=== PATIENT | female | born 1960 | race Native Hawaiian/Other Pacific Islander ===

== ENCOUNTER 2022-06-07 16:15 | Emergency (ER) | payer OTHER ==
[~2022-06-07] VITALS: Ht 157.5 cm; Wt 113.4 kg
[2022-06-07 16:45] VITALS: TEMP 97.2
[2022-06-07 21:21] LABS: PLATELET COUNT 464 K/uL (152-353)
[2022-06-07 21:43] LABS: POTASSIUM 3.6 mmol/L (3.6-5.2)
[2022-06-07 21:44] LABS: PARTIAL THROMBOPLASTIN TIME 27.6 SECONDS (24.5-33.6)
[2022-06-07 22:47] VITALS: BP 155/76
[2022-06-07] MEDS ORDERED: LEVOFLOXACIN500 MG PO (22:54)
[2022-06-07] MEDS ORDERED: PRED20TA27 PO (22:54)
== END 2022-06-07 23:20 | disposition home or self-care (01) ==
LOC: ED 16:15
PROVIDERS: Emergency Medicine
DX: J44.1 Chronic obstructive pulmonary disease with (acute) exacerbation (principal)
CPT/HCPCS: 80053; 83880; 84484; 85027; 85379; 85610; 85730; 94664; 99283; J2930

== ENCOUNTER 2022-07-04 13:01 | Emergency (ER) | payer OTHER ==
[~2022-07-04] VITALS: Ht 157.5 cm; Wt 113.4 kg
[2022-07-04 13:01] VITALS: TEMP 97.7
[~2022-07-04 13:01] MED LIST: LEVOFLOXACIN500 MG PO; PRED20TA27 PO
[2022-07-04 13:35] LABS: PLATELET COUNT 489 K/uL (152-353)
[2022-07-04 13:43] LABS: POTASSIUM 3.6 mmol/L (3.6-5.2)
[2022-07-04 13:53] LABS: PARTIAL THROMBOPLASTIN TIME 27.2 SECONDS (24.5-33.6)
[2022-07-04 17:41] VITALS: BP 121/70
== END 2022-07-04 17:54 | disposition home or self-care (01) ==
LOC: ED 13:01
PROVIDERS: Emergency Medicine
DX: R07.89 Other chest pain (principal)
CPT/HCPCS: 80053; 83880; 84484; 85027; 85610; 85730; 96374; 96375; 99284; J2270; J2405

== ENCOUNTER 2022-07-20 16:13 | Emergency (ER) | payer OTHER ==
[~2022-07-20] VITALS: Ht 157.5 cm; Wt 113.4 kg
[2022-07-20 16:48] LABS: PLATELET COUNT 572 K/uL (152-353)
[2022-07-20 16:56] LABS: POTASSIUM 4.1 mmol/L (3.6-5.2)
[2022-07-21 01:05] VITALS: BP 120/70; TEMP 98.6
== END 2022-07-21 01:05 | disposition other institution (70) ==
LOC: ED 16:20
PROVIDERS: Family Medicine
DX: R45.851 Suicidal ideations (principal); F32.89 Other specified depressive episodes; Z11.52 Encounter for screening for COVID-19
CPT/HCPCS: 36415; 80053; 80307; 80320; 81002; 85027; 87635; 93005; 99285; U0003

== ENCOUNTER 2022-08-23 18:04 | Emergency (ER) | payer OTHER ==
[~2022-08-23] VITALS: Ht 157.5 cm; Wt 121.1 kg
[2022-08-23 18:10] VITALS: BP 152/62; TEMP 97.8
[2022-08-23 18:47] LABS: PLATELET COUNT 517 K/uL (152-353)
[2022-08-23 19:11] LABS: POTASSIUM 3.6 mmol/L (3.6-5.2)
== END 2022-08-23 21:26 | disposition home or self-care (01) ==
LOC: ED 18:04
PROVIDERS: Family Medicine
DX: R51.9 Headache, unspecified (principal); R11.2 Nausea with vomiting, unspecified; Z79.2 Long term (current) use of antibiotics; Z51.81 Encounter for therapeutic drug level monitoring
CPT/HCPCS: 36415; 80053; 80307; 81002; 85027; 93005; 96372; 99283; J1885

== ENCOUNTER 2022-08-28 09:15 | Emergency (ER) | payer OTHER ==
[~2022-08-28] VITALS: Ht 157.5 cm; Wt 121.1 kg
[2022-08-28 09:15] VITALS: TEMP 98
[2022-08-28 10:17] LABS: POTASSIUM 3.7 mmol/L (3.6-5.2)
[2022-08-28 10:23] LABS: PLATELET COUNT 478 K/uL (152-353)
[2022-08-28 15:15] VITALS: BP 128/78
== END 2022-08-28 15:24 | disposition home or self-care (01) ==
LOC: ED 09:15
PROVIDERS: Emergency Medicine Emergency Medical Services
DX: F32.A Depression, unspecified (principal)
CPT/HCPCS: 80053; 80143; 80179; 80307; 81002; 84484; 85027; 93005; 96360; 96374; 96375; 96376; 99285; J1885; J2405

== ENCOUNTER 2022-09-30 15:56 | Emergency (ER) | payer OTHER ==
[~2022-09-30] VITALS: Ht 157.5 cm; Wt 115.2 kg
[2022-09-30 16:01] VITALS: TEMP 98.4
[2022-09-30 16:56] LABS: PLATELET COUNT 542 K/uL (152-353)
[2022-09-30 17:02] LABS: POTASSIUM 3.7 mmol/L (3.6-5.2)
[2022-09-30 18:01] VITALS: BP 143/78
== END 2022-09-30 18:23 | disposition home or self-care (01) ==
LOC: ED 15:56
PROVIDERS: Emergency Medicine Emergency Medical Services
DX: J44.1 Chronic obstructive pulmonary disease with (acute) exacerbation (principal); Z20.822 Contact with and (suspected) exposure to COVID-19
CPT/HCPCS: 36415; 80048; 83880; 84484; 85027; 85379; 87502; 87635; 93005; 94664; 96365; 96375; 99284; J0696; J1885; J1940; J2930; U0003

== ENCOUNTER 2022-11-05 18:28 | Emergency (ER) | payer OTHER ==
[~2022-11-05] VITALS: Ht 157.5 cm; Wt 121.1 kg
[2022-11-05 18:34] VITALS: TEMP 98.3
[2022-11-05 19:25] LABS: PLATELET COUNT 569 K/uL (152-353)
[2022-11-05 19:26] LABS: POTASSIUM 3.9 mmol/L (3.6-5.2)
[2022-11-05 20:00] VITALS: BP 144/72
== END 2022-11-05 21:00 | disposition home or self-care (01) ==
LOC: ED 18:28
PROVIDERS: Emergency Medicine
DX: J40 Bronchitis, not specified as acute or chronic (principal); J44.1 Chronic obstructive pulmonary disease with (acute) exacerbation; I10 Essential (primary) hypertension; E66.8 Other obesity; Z20.822 Contact with and (suspected) exposure to COVID-19
CPT/HCPCS: 36415; 80053; 83880; 84484; 85027; 85379; 87502; 87635; 93005; 94664; 96361; 96365; 96374; 99284; J0696; J2930; U0003

== ENCOUNTER 2022-11-08 13:38 | Observation (INO) | payer OTHER ==
[2022-11-08] VITALS (10 sets, daily range): BP systolic 128–179; BP diastolic 44–99; TEMP 97.6–97.8
[~2022-11-08] VITALS: Ht 157.5 cm; Wt 117.2 kg
[~2022-11-08 13:38] MED LIST changes: +Z-PAK PO
[2022-11-08 14:40] LABS: PLATELET COUNT 587 K/uL (152-353)
[2022-11-08 14:58] LABS: PARTIAL THROMBOPLASTIN TIME 26.5 SECONDS (24.5-33.6)
[2022-11-08] MEDS ORDERED: IPRATROPIUM/ INH (18:58)
[2022-11-08] MEDS ORDERED: PRED10TA27 PO (18:59)
[2022-11-08] MEDS ORDERED: DULO30CA PO (19:00)
[2022-11-08] MEDS ORDERED: CLON0.5T36 PO (19:00)
[2022-11-08] MEDS ORDERED: ARIPIPRAZOLE10 MG PO (19:01)
[2022-11-08] MEDS ORDERED: GABA400C2 PO (19:01)
[2022-11-08] MEDS ORDERED: LIPITOR40 MG PO (19:01)
[2022-11-08] MEDS ORDERED: MINIPRESS2 MG PO (19:02)
[2022-11-08] MEDS ORDERED: PRAZ1CAP16 PO (19:02)
[2022-11-08] MEDS ORDERED: TRAZ100T PO (19:03)
[2022-11-08] MEDS ORDERED: PROAIR HFA108 MCG/AC INH (19:04)
[2022-11-08] MEDS ORDERED: FLUTMIS6 INH (19:05)
[2022-11-08] MEDS ORDERED: AMLODIPINE BESYLATE PO (19:06)
[2022-11-08] MEDS ORDERED: PANTOPRAZOLE 40MG TA PO (19:06)
[2022-11-08] MEDS ORDERED: PAIN RELIEF EX500 MG PO (19:06)
[2022-11-08] MEDS ORDERED: MUCINEX PO (19:07)
[2022-11-08] MEDS ORDERED: METF500T PO (19:09)
[2022-11-09] VITALS (7 sets, daily range): BP systolic 111–165; BP diastolic 58–94; TEMP 97.6–98.4
[2022-11-09 04:19] LABS: PLATELET COUNT 589 K/uL (152-353)
[2022-11-10 03:58] VITALS: BP 110/54; TEMP 97.6
[2022-11-10 08:00] VITALS: BP 136/59; TEMP 98.3
[2022-11-10] MEDS ORDERED: Z-PAK PO (09:43)
[2022-11-10] MEDS ORDERED: CEFD300C2 PO (09:44)
[2022-11-10 12:00] VITALS: BP 137/77; TEMP 98.3
== END 2022-11-10 14:03 | disposition home or self-care (01) ==
LOC: ED 13:38 → MED/SURG 15:25
PROVIDERS: Emergency Medicine; ADMIT Internal Medicine; ATTEND Internal Medicine
DX: J44.1 Chronic obstructive pulmonary disease with (acute) exacerbation (principal); F41.8 Other specified anxiety disorders; R06.02 Shortness of breath; K59.09 Other constipation; E11.65 Type 2 diabetes mellitus with hyperglycemia; E78.49 Other hyperlipidemia; E66.8 Other obesity; B37.2 Candidiasis of skin and nail; I10 Essential (primary) hypertension
CPT/HCPCS: 36415; 80053; 82948; 83880; 84484; 85027; 85379; 85610; 85730; 87502; 87635; 93005; 94664; 94760; 96372; 96376; 99220; 99283; 99284; G0378; J1650; J1956; J2405; J2920; J2930; U0003

== ENCOUNTER 2022-11-26 14:20 | Emergency (ER) | payer OTHER ==
[~2022-11-26] VITALS: Ht 157.5 cm; Wt 117.9 kg
[~2022-11-26 14:20] MED LIST changes: +AMLODIPINE BESYLATE PO; +ARIPIPRAZOLE10 MG PO; +CEFD300C2 PO; +CLON0.5T36 PO; +DULO30CA PO; +FLUTMIS6 INH; +GABA400C2 PO; +IPRATROPIUM/ INH; +LIPITOR40 MG PO; +METF500T PO; +MINIPRESS2 MG PO; +MUCINEX PO; +PAIN RELIEF EX500 MG PO; +PANTOPRAZOLE 40MG TA PO; +PRAZ1CAP16 PO; +PRED10TA27 PO; +PROAIR HFA108 MCG/AC INH; +TRAZ100T PO
[2022-11-26 14:28] VITALS: TEMP 100
[2022-11-26 14:42] LABS: PLATELET COUNT 505 K/uL (152-353)
[2022-11-26 14:46] LABS: POTASSIUM 4.5 mmol/L (3.6-5.2)
[2022-11-26 16:16] VITALS: BP 160/86
== END 2022-11-26 16:24 | disposition home or self-care (01) ==
LOC: ED 14:20
PROVIDERS: Emergency Medicine
DX: R07.89 Other chest pain (principal); F41.8 Other specified anxiety disorders; R51.9 Headache, unspecified; R06.02 Shortness of breath
CPT/HCPCS: 80053; 83880; 84484; 85027; 85379; 93005; 99284

== ENCOUNTER 2022-12-07 23:30 | Emergency (ER) | payer OTHER ==
[~2022-12-07] VITALS: Ht 157.5 cm; Wt 113.4 kg
[2022-12-08 01:01] LABS: PARTIAL THROMBOPLASTIN TIME 26.5 SECONDS (24.5-33.6)
[2022-12-08 01:04] LABS: PLATELET COUNT 599 K/uL (152-353)
[2022-12-08 07:00] VITALS: BP 122/71; TEMP 98
== END 2022-12-08 12:16 | disposition other institution (70) ==
LOC: ED 23:30
PROVIDERS: Family Medicine
DX: R45.851 Suicidal ideations (principal); F33.8 Other recurrent depressive disorders; Z11.52 Encounter for screening for COVID-19; R07.89 Other chest pain
CPT/HCPCS: 36415; 80053; 80307; 81002; 82550; 84484; 85027; 85610; 85730; 87635; 93005; 96360; 99285; U0003

== ENCOUNTER 2023-01-27 12:46 | Emergency (ER) | payer OTHER ==
[~2023-01-27] VITALS: Ht 157.5 cm; Wt 120.2 kg
[~2023-01-27 12:46] MED LIST changes: -TRAZ100T PO; +TRAZ50TA36 PO
[2023-01-27 13:03] VITALS: TEMP 98.7
[2023-01-27 13:41] LABS: PLATELET COUNT 543 K/uL (152-353)
[2023-01-27 13:46] LABS: POTASSIUM 3.6 mmol/L (3.6-5.2); SODIUM 140 mmol/L (136-145)
[2023-01-27 17:02] VITALS: BP 138/71
[2023-01-29] MEDS ORDERED: CEFD300C2 PO (13:31)
[2023-01-29] MEDS ORDERED: BUSPIRONE15 MG PO (13:33)
[2023-01-29] MEDS ORDERED: PROMETH/COD1 ML PO (13:57)
[2023-01-29] MEDS ORDERED: FAMO20TA4 PO (13:59)
[2023-01-29] MEDS ORDERED: FEXOFENADINE H180 M1 PO (14:00)
[2023-01-29] MEDS ORDERED: MOBIC7.5 M1 PO (14:01)
[2023-01-29] MEDS ORDERED: LISINOPRIL PO (14:01)
[2023-01-29] MEDS ORDERED: SPIRIVA HANDIH18 MCG INH (14:02)
[2023-01-29] MEDS ORDERED: MONT10TA PO (14:02)
[2023-01-29] MEDS ORDERED: HYDR50CA21 PO (14:03)
[2023-01-29] MEDS ORDERED: MILK OF MA400 MG/5 M PO (14:05)
[2023-01-29] MEDS ORDERED: TRAZ100T PO (14:27)
== END 2023-01-27 17:04 | disposition home or self-care (01) ==
LOC: ED 12:46
PROVIDERS: Emergency Medicine Emergency Medical Services
DX: F31.89 Other bipolar disorder (principal); Z79.899 Other long term (current) drug therapy
CPT/HCPCS: 80053; 80143; 80179; 80307; 80320; 81002; 85027; 93005; 99285